=== PATIENT | female | born 1995 | race Caucasian/White ===

== ENCOUNTER 2019-08-23 19:32 | Emergency (ER) | payer OTHER, SELFPAY ==
[2019-08-23 19:45] VITALS: BP 130/77; PULSE 106; RESP 20; TEMP 37.4; O2SAT 100
--- NOTE | 2019-08-23 21:00 | ED.GENADULT ---
HPI - General Adult General Chief complaint: Animal Bite Stated complaint: cat bite and scratches Time Seen by Provider: 08/23/19 21:00 Source: patient and RN notes reviewed Mode of arrival: ambulatory Limitations: no limitations History of Present Illness HPI narrative: 23-year-old female presents with complaints of cat bites and scratches to bilateral upper extremities with redness, swelling, and discomfort occurred approximately at 17:00 today. No drainage. Cleaned wounds and applied Neosporin with no relief. Jany says the cat is hers and shoots are up to date. The cat became upset once she was pet by a young family member then her dog intervened to protect the child and the cat aggression increased. Mild abrasions with discomfort, swelling, and redness throughout arms and hands. Swelling and bruising to RT 2nd (index) and 3rd (middle) finger. RIGHT HAND dominant hand. Denies tingling or numbness. Denies immobility. Exacerbating factors consist of movement and palpation. Relieving factor immobility. Denies altered sensation, back pain, neck pain, and suspected foreign body. Denies falling, hitting head, or loss of consciousness. Remains active. Tetanus vaccine up-to-date. Jany denies being , LMP currently started 08/21/2019. Denies fever or chills. Denies diaherra, nausea, vomiting, and abdominal pain. Tolerating po intake well. Denies headaches, weakness, fatigue, myalgia, or facial swelling. Denies chest pain or dyspnea. Denies cough, rhinorrhea, congestion, sore throat. Denies recent traveling. Denies concern for COVID-19 or exposures been home since [id number] order except for essential household needs, working, and return home. Some parts of this dictation were generated by voice recognition software and may contain typographical and/or grammatical inaccuracies. Related Data Allergies Allergy/AdvReac Type Severity Reaction Status Date / Time Penicillins Allergy Hives Verified 08/23/19 20:01 Review of Systems Review of Systems: Narrative: CONSTITUTIONAL: Denies fever, chills, sweats. EYES: Denies visual changes, redness, discharge. ENT: Denies rhinorrhea, congestion, sore throat, otalgia. CARDIOVASCULAR: Denies chest pain, palpitations, edema. RESPIRATORY: Denies dyspnea, wheezing, cough. GASTROINTESTINAL: Denies abdominal pain, nausea, vomiting, diarrhea. GENITOURINARY: Denies dysuria, hematuria, abnormal discharge. SKIN: Denies rash or itching. Complains of cat bites and scratches to bilateral upper extremities with bruising, redness, swelling, discomfort. No drainage MUSCULOSKELETAL: Denies acute back pain, joint pain, or myalgia. NEUROLOGIC: Denies numbness or focal weakness. PSYCHIATRIC: Denies anxiety or depression. All other systems reviewed are negative, except as documented in HPI and below. PMFSH Past Medical History Medical History (Updated 08/24/19 @ 09:49 by ROHIT Alcantar) No significant past medical history Surgical History Surgical History (Updated 08/24/19 @ 09:49 by ROHIT Alcantar) History of tonsillectomy Hx of appendectomy Family History Family History (Updated 08/24/19 @ 09:50 by ROHIT Alcantar) Father Alive and well Mother Alive and well Social History Social History (Updated 08/24/19 @ 10:55 by ROHIT Alcantar) Smoking status: Former smoker Tobacco type: cigarettes Second hand tobacco smoke exposure: Yes Smoking end date: 04/09/15 Alcohol intake: current Substance use: current Substance use type: marijuana Living arrangements: with family Occupation/Education: occupation Gender identity (if verbalized by the patient): Female Comments At time of signature, agree with nurse past medical, surgical, social, and family history. There is no relevant family history pertinent to the presenting complaint. Exam Narrative: Exam Narrative: GENERAL: This is a well-nourished, well-developed pat
== END 2019-08-23 21:13 | disposition home or self-care (01) ==
PROVIDERS: Emergency Provider Nurse Practitioner Family
DX: S61.451A Open bite of right hand, initial encounter (principal); W55.01XA Bitten by cat, initial encounter; Z87.891 Personal history of nicotine dependence
CPT/HCPCS: 99213; G0463